=== PATIENT | male | born 1970 | race Caucasian/White ===

== ENCOUNTER → 2021-02-16 09:45 | Outpatient (BNVA) | payer OTHER, SELFPAY | PROVIDERS: Visit Provider Orthopaedic Surgery | DX: M54.9 Dorsalgia, unspecified (principal); M47.22 Other spondylosis with radiculopathy, cervical region | CPT/HCPCS: 72050; 72072; 72110 ==

== ENCOUNTER 2021-11-09 09:50 | Outpatient (CLI) | payer OTHER, SELFPAY ==
--- NOTE | 2021-11-09 10:06 | XRR_ITS ---
PROCEDURE INFORMATION: Exam: XR Left Elbow Exam date and time: 11/09/2021 10:18 AM Age: 50 years old Clinical indication: Pain and condition or disease; Arthritis; Type not specified; Elbow; Right; Patient HX: Chronic pain since 2010 TECHNIQUE: Imaging protocol: Radiologic exam of the Left elbow. Views: 1 or 2 views. AP and Lateral COMPARISON: No relevant prior studies available. FINDINGS: Bones/joints: There are no fractures or dislocations. The joint spaces are normal. There is no joint effusion. Tiny coronoid process degenerative osteophyte is seen. Soft tissues: There is no soft tissue swelling or radiopaque foreign bodies. Soft tissues: There is no elbow region soft tissue swelling. There are no radiopaque foreign bodies. Notes: If there is further clinical concern, recommend followup radiographs, bone scan or MRI for further assessment. XR/XR elbow LT 2V [id number] IMPRESSION: No fractures or dislocation of the left elbow.
--- NOTE | 2021-11-09 10:06 | XRR_ITS ---
PROCEDURE INFORMATION: Exam: XR Right Elbow Exam date and time: 11/09/2021 10:18 AM Age: 50 years old Clinical indication: Pain and condition or disease; Arthritis; Type not specified; Elbow; Bilateral; Patient HX: Chronic pain since 2010 TECHNIQUE: Imaging protocol: Radiologic exam of the Right elbow. Views: 1 or 2 views. AP and Lateral COMPARISON: No relevant prior studies available. FINDINGS: Bones/joints: There are no fractures or dislocations. The joint spaces are normal. There is no joint effusion. Small small dorsal olecranon enthesophyte is seen. This can be associated with triceps tendinopathy. Soft tissues: There is no soft tissue swelling or radiopaque foreign bodies. Notes: If there is further clinical concern, recommend followup radiographs, bone scan or MRI for further assessment. XR/XR elbow RT 2V [id number] IMPRESSION: 1. No fractures or dislocation of the right elbow. 2. Small small dorsal olecranon enthesophyte. This can be associated with triceps tendinopathy.
== END 2021-11-09 09:51 | disposition home or self-care (01) ==
LOC: RAD 09:53
PROVIDERS: Visit Provider Chiropractor
DX: M13.80 Other specified arthritis, unspecified site (principal); M25.78 Osteophyte, vertebrae
CPT/HCPCS: 73070

== ENCOUNTER 2021-11-25 09:01 | Outpatient (CLI) | payer OTHER, SELFPAY ==
--- NOTE | 2021-11-25 09:20 | XR_ITS ---
WS: [id number] AP pelvis, AP both hips, 11/25/2021 Clinical Data: TO INCLUDE PELVIS Comparison: None. Findings: There are no fractures or dislocations. The hips show no narrowing, erosion, sclerosis or fragmentati on of the femoral heads. The SI joints and pubic symphysis are unremarkable. The soft tissues are nor mal. XR/XR hip BI 2V wo/w pel [id number] Impression: Negative pelvis and hips.
== END 2021-11-25 09:02 | disposition home or self-care (01) ==
PROVIDERS: Visit Provider Chiropractor
DX: M13.80 Other specified arthritis, unspecified site (principal)
CPT/HCPCS: 73521

== ENCOUNTER 2022-06-08 05:58 | Outpatient (CLI) | payer OTHER, SELFPAY | END 2022-06-08 05:59 | disposition home or self-care (01) | LOC: SLEEP 06-09 05:59 | PROVIDERS: Visit Provider Family Medicine | DX: G47.30 Sleep apnea, unspecified (principal) | CPT/HCPCS: 95811 ==

== ENCOUNTER 2022-08-12 14:53 | Outpatient (CLI) | payer OTHER, SELFPAY ==
--- NOTE | 2022-08-12 15:00 | CT_ITS ---
WS: [id number] CT SINUSES TECHNIQUE: Noncontrast CT of the paranasal sinuses with coronal and sagittal reformatted images. CLINICAL INFORMATION: examining for chronic sinutitis COMPARISON: None. DLP: 412.[address] scans at [facility] use at least one of these dose optimization techniques: automated e xposure control; mA and/or kV adjustment per patient size (includes targeted exams where dose is matc hed to clinical indication); or iterative reconstruction. FINDINGS: Mild mucosal thickening ethmoid air cells. Paranasal sinuses are well aerated. Mastoid air cells well aerated. Normal posterior nasopharynx. Normal parapharyngeal fat. Parotid glands appear normal. Bila teral dave bullosa RIGHT greater than LEFT. RIGHT to LEFT nasal septal deviation measuring 7.8 mm. Millimeter retention cyst or polyp along the LEFT frontoethmoidal recess. Frontal sinuses are well ae rated. Maxillary sinuses well aerated. Normal Sphenoid sinuses. Mild narrowing of the maxillary infun dibulum bilaterally with mucosal thickening RIGHT greater than LEFT. Normal C1- [address]/CT sinus wo con* [id number] IMPRESSION: 1. Mild RIGHT to LEFT nasal septal deviation measuring 7.8 mm. 2. Paranasal sinuses are well aerated with mild mucosal thickening ethmoid air cells. 3. Bilateral dave bullosa RIGHT greater than LEFT. 4. Mild narrowing of the maxillary infundibulum bilaterally RIGHT greater than LEFT with mucosal thickening. 5. Mastoid air cells are well aerated. Normal posterior nasopharynx. 6. Small retention cyst or polyp along the LEFT frontoethmoidal recess. This m easures approximately 9 mm.
== END 2022-08-12 14:54 | disposition home or self-care (01) ==
PROVIDERS: PCP Family Medicine; Visit Provider Otolaryngology
DX: J34.2 Deviated nasal septum (principal); J34.89 Other specified disorders of nose and nasal sinuses; J32.9 Chronic sinusitis, unspecified; J31.0 Chronic rhinitis; R04.0 Epistaxis
CPT/HCPCS: 70486

== ENCOUNTER 2023-02-05 10:23 | Emergency (ER) | payer OTHER, SELFPAY ==
[2023-02-05 10:46] VITALS: BP 126/72; PULSE 77; RESP 16; TEMP 36.6; O2SAT 93; BMI 27.0
--- NOTE | 2023-02-05 11:01 | W.ED.BACK ---
HPI - Back Pain/Injury General: Chief Complaint: Back Pain/Injury Stated Complaint: back pains Time Seen by Provider: 02/05/23 10:46 Source: patient Mode of arrival: ambulatory History of Present Illness: 52-year-old male presents to the emergency room cloning of thoracic back and neck pain. He has had chronic problems in the past he hand-delivered his MRIs from his neck thoracic and lumbar spine that he had in 2020. No precipitating injury. No red flag symptoms no trauma. No saddle paresthesias no difficulty with bowel or bladder he has some numbness and tingling occasionally particularly in his right hand but this is not new or suddenly changed but has worsened slightly. He uses meloxicam and ibuprofen as needed. He has not previously had surgery but had a consultation. MD elicited complaint: back pain Pertinent past history: prior back pain Onset (ago): day(s) Timing: constant Severity: moderate Similar Symptoms Previously: Yes Quality: aching Location: thoracic spine (And neck) Radiation: other (Upper extremities) Associated symptoms: Deny abdominal pain, arthralgias, chills, change in bowel habits, difficulty walking, dysuria, fatigue, fecal incontinence, fever(s), hematuria, myalgias, nausea, numbness, syncope, tingling/numbness/burning, urinary frequency, urinary urgency, vomiting or weakness Work related injury: No Review of Systems Const: Denies: fever(s), chills or fatigue Card: Denies: syncope Resp: Denies: dyspnea GI: Denies: abdominal pain, nausea, vomiting, fecal incontinence or change in bowel habits : Denies: dysuria, urinary urgency or hematuria Musc: Reports: neck pain and back pain (Thoracic) Skin/Breast: Denies: rash Neuro: Denies: difficulty walking PFS ED PFSH: Medical History Asthma COPD (chronic obstructive pulmonary disease) GERD (gastroesophageal reflux disease) Hypertension Surgical History Hx of appendectomy Social History Smoking and tobacco/nicotine status: current every day tobacco/nicotine user (1/2 PACK) Physical Exam Const: GENERAL APPEARANCE: cooperative and comfortable ORIENTATION/CONSCIOUSNESS: Yes awake, Yes oriented to person, Yes oriented to place and Yes oriented to time HENMT: COMMON NORMALS: normocephalic, atraumatic and hearing grossly normal bilaterally HEAD & SCALP: normocephalic and atraumatic Resp: COMMON NORMALS: normal respiratory effort, No retractions, No use of accessory muscles and clear to auscultation bilaterally AUSCULTATION: clear to auscultation bilaterally Cardio: COMMON NORMALS: regular rate, regular rhythm and No murmurs present (Cardio) RATE: regular rate RHYTHM: regular rhythm Extremity: COMMON NORMALS: normal to inspection, capillary refill normal, no clubbing, cyanosis or edema, no calf tenderness and no pedal edema Neuro: SENSORIUM/ORIENTATION: Yes oriented to person, Yes oriented to place and Yes oriented to time Skin: COMMON NORMALS: no rashes or lesions noted GENERAL SKIN EXAM: no rashes or lesions noted Course Vital Signs: Vital signs: Vital Signs Temperature 97.9 F 02/05/23 10:46 Pulse Rate 77 02/05/23 10:46 Respiratory Rate 16 02/05/23 10:46 Blood Pressure 126/72 02/05/23 10:46 Pulse Oximetry 93 02/05/23 10:46 Oxygen Delivery Me thod Room Air 02/05/23 10:46 MDM - Back Pain/Injury Medical Decision Making Acute on chronic back pain mostly thoracic in nature no red flag injuries. Patient given dexamethasone Norflex and Toradol he is somewhat better discharged home on pregabalin tizanidine and steroids. Medical Records I reviewed the patient's medical records. Labs I reviewed the patient's lab results. All radiology interpretation(s) finalized by discharge Discharge Plan Discharge Patient Disposition: Home Clinical Impression: Thoracic back pain Condition: Stable Prescriptions: New tizanidine 4 mg tablet 4 mg PO Q6H PRN (Reason: muscle spasticity) Qty: 20 0RF Rx Instructions: do not exceed 3 doses per 24 hrs prednisone 20 mg tablet 20 mg PO TID Qty: 15 0RF Rx Instructions: 1 p.o. 3 times daily x3 days, 1 p.o. twice daily x2 days, 1 p.o. daily x2 days pregabalin 75 mg capsule 75 mg PO BID Qty: 30 0RF No Action amlodipine 10 mg tablet 10 mg PO DAILY ibuprofen 800 mg tablet 800 mg PO Q8H esomeprazole magnesium [Nexium] 20 mg capsule,delayed release(DR/EC) 20 mg PO DAILY melatonin 3 mg capsule 3 mg PO DAILY prednisone 20 mg tablet 20 mg PO DAILY Qty: 15 0RF Rx Instructions: 60mg on day 1,2,3 40mg on day 4,5 20mg on day 6,7 fluticasone propionate 50 mcg/actuation spray,suspension 2 spray intranasal DAILY 360 Days Qty: 16 11RF Rx Instructions: administer into each nostril Discharge Orders: Discharge ED (Routine); Ordered 02/05/23 Ordered By: Hiram Lorenzana Referrals: Ratna Philip MD [Primary Care Provider] - Discharge Diet: Usual diet Discharge Activity: Increase activity as tolerated Patient Instructions: Opioid Safety, Pain Management Activity Restrictions/Additional Instructions: Thank you for choosing [facility] for your healthcare needs today. Please realize this is an emergency room and that we are providing you with a medical screening exam and this may not be complete and all inclusive of all the testing and or work up that you may need to determine your ailment or severity of your illness. It is very important that you follow up as instructed or that you return to the Emergency Department should you have concerns or if your condition changes or worsens in any way. You are seen today for thoracic back pain. Recommend you follow-up with your primary care doctor or with orthopedic spine surgery if symptoms persist. Start the oral steroid taper tomorrow you can continue to use the meloxicam you should not use meloxicam and ibuprofen at the same time. You can also use muscle relaxer you are given. Coding Level of Care Code ED Technology Consultant for Juacn[employer] Rosenberg
[2023-02-05] MEDS: dexamethasone 10 mg/mL INJ IM (11:26)
[2023-02-05] MEDS: orphenadrine 30 mg/mL Inj 2 mL 60 MG IVP (11:26)
[2023-02-05] MEDS: ketorolac 60 mg/2 mL INJ IM (11:26)
== END 2023-02-05 12:01 | disposition home or self-care (01) ==
PROVIDERS: Emergency Provider Family Medicine; PCP Family Medicine
DX: M54.6 Pain in thoracic spine (principal); J44.9 Chronic obstructive pulmonary disease, unspecified; I10 Essential (primary) hypertension; F17.210 Nicotine dependence, cigarettes, uncomplicated
CPT/HCPCS: 96372; 96374; 99284; J1100; J1885; J2360

== ENCOUNTER 2024-04-03 13:16 | Outpatient (CLI) | payer OTHER, SELFPAY ==
--- NOTE | 2024-04-03 13:18 | CT_ITS ---
WS: [id number] CT CERVICAL SPINE HISTORY: CERVICAL RADICULOPATHY WITH SPINAL STENOSIS TECHNIQUE: Contiguous 2.0 mm axial imaging performed through the entire cervical spine. Sagittal and coronal reformats also performed. All CT scans at [facility] use at least one of these dose o ptimization techniques: automated exposure control; mA and/or kV adjustment per patient size (include s targeted exams where dose is matched to clinical indication); or iterative reconstruction. DLP: 163.17 mGy.cm COMPARISON: Radiograph 02/16/2021 Patient's head is slightly tilted to the LEFT. Posterior alignment is normal. Severe degenerative dis c space disease at C6-7. Marked osteophytic ridging around the C6 and C7 vertebral bodies. Unfused ap ophysis of the C6, C7 and T1 spinous processes. Narrowing of the predental space. Small osteophytes from the odontoid process and anterior ring of C1 . C2-C3: Normal. C3-C4: Small central disc protrusion. Moderate facet joint arthritis and foraminal stenosis. C4-C5: Small central disc protrusion with bilateral facet joint arthropathy. Mild LEFT and moderate R IGHT foraminal stenosis. C5-C6: Mild osteophytic ridging. No stenosis. C6-C7: Marked osteophytic ridging and facet joint arthritis. Osteophytes project upon the ventral the adore sac and foramina. Moderate to severe central and RIGHT foraminal stenosis. Severe LEFT foraminal stenosis. C7-T1: No stenosis. Paraseptal emphysema at the lung apices. CT/CT cervical spin wo con* [id number] IMPRESSION: 1. Advanced degenerative disc disease and osteophytosis at C6-7. Moderate to s evere central and RIGHT foraminal stenosis with severe LEFT foraminal stenosis. 2. Small central disc protrusions at C3-4 and C4-5. 3. Moderate RIGHT foraminal stenosis at C4-5 and mild LEFT foraminal stenosis. 4. No cervical spine fracture.
== END 2024-04-03 13:17 | disposition home or self-care (01) ==
LOC: RAD 13:16
PROVIDERS: PCP Family Medicine; Visit Provider Family Medicine
DX: M50.123 Cervical disc disorder at C6-C7 level with radiculopathy (principal); M48.02 Spinal stenosis, cervical region; M25.78 Osteophyte, vertebrae; R93.89 Abnormal findings on diagnostic imaging of other specified body structures; M50.11 Cervical disc disorder with radiculopathy, high cervical region; M47.22 Other spondylosis with radiculopathy, cervical region; M50.121 Cervical disc disorder at C4-C5 level with radiculopathy
CPT/HCPCS: 72125

== ENCOUNTER → 2024-04-10 13:38 | Outpatient (BNVA) | payer OTHER, SELFPAY | PROVIDERS: PCP Family Medicine; Visit Provider Surgery | DX: Z12.11 Encounter for screening for malignant neoplasm of colon (principal) | CPT/HCPCS: 99204 ==

== ENCOUNTER 2024-05-16 06:53 | Day surgery (SDC) | payer OTHER, SELFPAY ==
[2024-05-16 07:11] VITALS: BP 106/83; PULSE 104; RESP 17; TEMP 36.5; O2SAT 93; BMI 26.5
[2024-05-16] MEDS: sodium chloride 0.9% 1,000 ML 30 ML IV (07:24)
--- NOTE | 2024-05-16 07:28 | W.PM.OPSFHP ---
Same Day Surgery H&P Indication for Procedure/HPI DATE OF PROCEDURE: May 16, 2024 CHIEF COMPLAINT/INDICATIONFOR SURGICAL PROCEDURE: reflux and need for screening colonoscopy PREOP DIAGNOSIS: reflux and need for screening colonoscopy PLANNED PROCEDURE: Operation Date: 05/16/24 08:20 Proposed Procedures p EGD 42339, 16844, G0121, Z12.11, K21.9(Not Applicable) - Kyaw Guan MD s Colonoscopy(Not Applicable) - Kyaw Guan MD Medications/Allergies* Home Medications ?Medication ?Instructions ?Recorded ?Confirmed ?Type amlodipine 10 mg tablet 10 mg PO DAILY 02/16/21 05/16/24 History pantoprazole 40 mg tablet,delayed 40 mg PO DAILY 04/10/24 05/16/24 History release trazodone 100 mg tablet 100 mg PO DAILY 04/10/24 05/16/24 History tramadol 50 mg tablet 100 mg PO PRN PRN Pain 05/14/24 05/16/24 History Allergies/Adverse Reactions Allergy/AdvReac Type Severity Reaction Status Date / Time No Known Allergies Allergy Verified 05/16/24 07:08 Current Medications: Generic Name Dose Route Start Last Admin Trade Name Freq PRN Reason Stop Dose Admin Sodium Chloride 1,000 mls @ 30 mls/hr 05/16/24 07:00 05/16/24 07:24 Sodium Chloride 0.9% IV 30 mls/hr .Q24H SANDY Administration Pertinent History/Comorbid Conditions* Medical History (Updated 02/13/23 @ 00:01 by DANIELA Martinez) GERD (gastroesophageal reflux disease) Hypertension COPD (chronic obstructive pulmonary disease) Asthma Surgical History (Updated 07/29/22 @ 08:10 by Garth Conley MD) Hx of appendectomy Family History (Updated 04/10/24 @ 13:48 by GURDEEP Charles) Cancer Sister breast Social History Smoking and tobacco/nicotine status: current every day tobacco/nicotine user Pertinent Exam Findings alert, oriented x 3, clear to auscultation bilaterally and regular rate & rhythm Recommendations Surgery/Procedure today Coding Level of Care Code Acute Code for Valeriag Fwd
--- NOTE | 2024-05-16 07:31 | ANES.PREANE2 ---
Pre-Anesthetic Assessment Height/Weight: Height 1.85 m Weight 91.172 kg Temp Pulse Resp BP Pulse Ox O2 Del Method 97.7 F 104 H 17 106/83 93 Room Air 05/16/24 07:11 05/16/24 07:11 05/16/24 07:11 05/16/24 07:11 05/16/24 07:11 05/16/24 07:11 Preop Diagnosis: reflux and need for screening colonoscopy Operation Date: 05/16/24 08:20 Proposed Procedures p EGD [id number], [id number], G0121, Z12.11, K21.9(Not Applicable) - Kyaw Guan MD s Colonoscopy(Not Applicable) - Kyaw Guan MD Familial anesthetic complications: none Was Beta Kalyn taken within 24 hours: N/A Was Clonidine taken within 24 hours: N/A Last intake: Intake Last Liquid Date 05/16/24 Last Liquid Time 00:00 Last Solid Date 05/14/24 Last Solid Time 17:00 Social Alcohol and Tobacco Exam alert, oriented x 3, clear to auscultation bilaterally and regular rate & rhythm Airway Submandibular: within normal limits Mallampati: Class II Comments: Comments: intact Pulmonary Chronic Obstructive Pulmonary Disease CV/HEM Hypertension HLD None reported Hepatic None reported GI Gastroesophageal Reflux Disease Metabolic Hyperlipidemia [facility] None reported Neuropsych Neuropathy Anesthetic Plan ASA status: 3 Anesthesia: MAC Risk of > 500 ml blood loss (7ml/kg in children): No Medications/Allergies Home Medications ?Medication ?Instructions ?Recorded ?Confirmed ?Last Taken ?Type amlodipine 10 mg tablet 10 mg PO DAILY 02/16/21 05/16/24 05/15/24 History fluticasone propionate 50 2 spray intranasal DAILY 12 months 09/02/22 05/16/24 05/16/24 Rx mcg/actuation nasal #16 grams spray,suspension pregabalin 75 mg capsule 75 mg PO BID #30 caps 02/05/23 05/16/24 05/15/24 Rx tizanidine 4 mg tablet 4 mg PO Q6H PRN muscle spasticity 02/05/23 05/16/24 05/15/24 Rx #20 tabs ondansetron 8 mg disintegrating 8 mg PO Q8H PRN nausea and 04/10/24 05/16/24 05/15/24 Rx tablet vomiting #3 tabs pantoprazole 40 mg tablet,delayed 40 mg PO DAILY 04/10/24 05/16/24 05/15/24 History release trazodone 100 mg tablet 100 mg PO DAILY 04/10/24 05/16/24 05/15/24 History tramadol 50 mg tablet 100 mg PO PRN PRN Pain 05/14/24 05/16/24 05/15/24 History Allergies Allergy/AdvReac Type Severity Reaction Status Date / Time No Known Allergies Allergy Verified 05/16/24 07:08 Current Medications Generic Name Dose Route Start Last Admin Trade Name Freq PRN Reason Stop Dose Admin Sodium Chloride 1,000 mls @ 30 mls/hr 05/16/24 07:00 05/16/24 07:24 Sodium Chloride 0.9% IV 30 mls/hr .Q24H SANDY Administration PFSH Anesthesia Medical History GERD (gastroesophageal reflux disease) Hypertension COPD (chronic obstructive pulmonary disease) Asthma Surgical History Hx of appendectomy Family History (Updated 04/10/24 @ 13:[address]) Sister Cancer breast Social History Smoking and tobacco/nicotine status: current every day tobacco/nicotine user Data Anesthesia Cardiac Studies: No Data to Display
[2024-05-16 08:44] VITALS: BP 96/66; PULSE 86; RESP 19; TEMP 36.1; O2SAT 97
[2024-05-16 08:57] VITALS: BP 110/75; PULSE 78; RESP 18; O2SAT 92
[2024-05-16 09:09] VITALS: BP 110/82; PULSE 76; RESP 16; O2SAT 93
[2024-05-16 09:20] VITALS: O2SAT 93
--- NOTE | 2024-05-16 09:40 | ANE.PACU2 ---
Inpatient post-anesthesia follow up: Airway intact: Yes Vital signs: Temperature 97.0 F Pulse Rate 76 Respiratory Rate 16 Blood Pressure 110/82 Pulse Oximetry 93 Oxygen Delivery Me thod Room Air Oxygen Flow Rate 3 Fraction of Inspir ed Oxygen Hydration adequate: Yes Nausea and vomiting: No Pain level: 1 Mental status: Baseline
== END 2024-05-16 09:40 | disposition home or self-care (01) ==
PROVIDERS: PCP Family Medicine; Visit Provider Surgery
PROC: 0DJ08ZZ Inspection of Upper Intestinal Tract, Via Natural or Artificial Opening Endoscopic (ICD-10-PCS; principal; 2024-05-16 08:20)
PROC: 0DJD8ZZ Inspection of Lower Intestinal Tract, Via Natural or Artificial Opening Endoscopic (ICD-10-PCS; CPT 45378; 2024-05-16 08:20)
DX: Z12.11 Encounter for screening for malignant neoplasm of colon (principal); K57.30 Diverticulosis of large intestine without perforation or abscess without bleeding; K62.1 Rectal polyp; D12.3 Benign neoplasm of transverse colon; D12.5 Benign neoplasm of sigmoid colon; K44.9 Diaphragmatic hernia without obstruction or gangrene; K29.80 Duodenitis without bleeding; K21.9 Gastro-esophageal reflux disease without esophagitis; Z79.899 Other long term (current) drug therapy; I10 Essential (primary) hypertension; J44.9 Chronic obstructive pulmonary disease, unspecified; F17.210 Nicotine dependence, cigarettes, uncomplicated; E78.5 Hyperlipidemia, unspecified; G62.9 Polyneuropathy, unspecified; K29.50 Unspecified chronic gastritis without bleeding
CPT/HCPCS: 43239; 45380; 45385; 88305; 88342; J2704; J7030

== ENCOUNTER → 2024-05-28 10:38 | Outpatient (BNVA) | payer OTHER, SELFPAY | PROVIDERS: PCP Family Medicine; Visit Provider Surgery | DX: Z09 Encounter for follow-up examination after completed treatment for conditions other than malignant neoplasm (principal) | CPT/HCPCS: 99213 ==